=== PATIENT | male | born 1990 | race Caucasian/White ===

== ENCOUNTER 2019-04-12 03:29 | Emergency (ER) | payer SELFPAY ==
[~2019-04-12] VITALS: Ht 177.8 cm; Wt 68.0 kg
--- NOTE | 2019-04-12 03:48 | NUR ---
Dr. Plascencia at bedside for MSE.
--- NOTE | 2019-04-12 03:54 | NUR ---
Patient discharged to home in stable conditon. Written and verbal after care instructions given. Patient verbalizes understanding of instructions. Pt ambulated out of ER with steady gait, no acute signs of distress, VSS, all belongings taken.
[2019-04-12 03:55] VITALS: BP 134/84
== END 2019-04-12 03:56 | disposition home or self-care (01) ==
LOC: ER 03:35
DX: K08.89 Other specified disorders of teeth and supporting structures (principal); F17.200 Nicotine dependence, unspecified, uncomplicated; F12.10 Cannabis abuse, uncomplicated
CPT/HCPCS: A4663